=== PATIENT | male | born 1985 | race Caucasian/White ===

== ENCOUNTER 2018-05-08 13:20 | Observation (INO) | payer MEDICAID ==
--- NOTE | 2018-05-08 13:50 | EDPHY ---
HPI/HX/ROS/PE/MDM Narrative: CHIEF COMPLAINT: "Went to urgent care to get refill on blood pressure medication and they referred me here." HISTORY OF PRESENT ILLNESS: The patient is a 33 y/o male with a history of hypertension who arrives at the referral of urgent care for a refill of his blood pressure medications. He was prescribed lisinopril and hydrochlorothiazide in 2017, but has not been on them consistently. He was staying with his grandpa and checked his BP and found it high, so decided with his grandpa's encouragement to start taking his medications again and went to urgent care to get them filled. His last dose of lisinopril was 1 week ago. He didn't have specific complaints when he went to urgent care and says, "I've been going so long without the medication that I've adjusted to how I felt." He does currently complains of a headache across both temples and his forehead that radiates down the back of his neck into his shoulder. He the believes that some of the symptoms of his headache are related to tooth decay and have been present for a few days. He gets intermittent tingling in his fingertips and toes sometimes. He's also had some rhinorrhea and feels clammy, though it's not clear if this is acute. No known cardiac disease at a young age in primary family members. No fever, chills, chest pain, shortness of breath, palpitations, vomiting, diarrhea, urinary complaints, headache, lightheadedness, weakness. REVIEW OF SYSTEMS: Aside from elements discussed in the HPI, a comprehensive 10-point review of systems was reviewed and is negative. PAST MEDICAL HISTORY: Hypertension - lisinopril and hydrochlorothiazide; kidney stones FAMILY MEDICAL HISTORY: Mother age 60, had CAD, pulmonary disease, lung disease. Cause of not clear. SOCIAL HISTORY: Smoker, occasional marijuana, no other illicit drug use. Daily heavy alcohol use, last alcohol use last night, and says if he doesn't drink the next day "I feel like crap, but not DT shakes." No PCP. Lives in [place]. VITAL SIGNS: Reviewed by me. 197/130. GENERAL: Overweight individual, no respiratory distress, slightly diaphoretic on the face. No respiratory distress. Pleasant. HEENT: Atraumatic. Eyes: No icterus, no injection. Mouth: moist mucous membranes. No erythema or lesions. Very poor dentition, erythema around remaining tooth in upper right. Neck: supple with no adenopathy. No carotid bruit. LUNGS: Clear to auscultation bilaterally, no wheezes, rhonchi or rales. CARDIAC: Distant but regular rate and rhythm, no rubs, murmurs or gallops. ABDOMEN: Obese, soft, nontender, nondistended. BACK: No CVA tenderness. EXTREMITIES: No trauma. No edema. Range of motion is normal throughout. NEURO: Alert and oriented, grossly nonfocal. Not tremulous. SKIN: Warm and diaphoretic, no rash. PSYCHIATRIC: Normal mentation, no agitation. Portions of this note were transcribed by a medical assistant supervisor. I personally performed a history, physical exam, medical decision making, and confirmed accuracy of information the transcribed note. ED Course: This is a pleasant 33 y/o male with a history of inconsistently treated hypertension who presents requesting antihypertension medication refills, but also complaining of a headache, shoulder pain, and diaphoresis for a few days. He has an obese, benign abdomen and is quite diaphoretic. He has extremely poor dentition. He is not tachycardic but is hypertensive at 197/130. Plan for IV, labs, EKG, chest x-ray, head CT, angio head and neck CTs to assess for end- organ damage. 10mg PO lisinopril ordered. The 12 lead EKG was interpreted by myself. Sinus rhythm. See hard copy and/or "tracemaster" electronic copy for interpretation. POC troponin normal. Chest x-ray: negative. Head CT, head CTA, neck CTA: negative. Patient treated with lisinopril 10 mg. On re-examination, his diastolic blood pressure remains significantly elevated, greater than 120s. Spoke with hospitalist service. Dr. Magaña accepts admission. MDM: Differential diagnoses for the patient's symptom complex was considered including but not limited to hypertensive urgency, hypertensive emergency, endorgan damage from longstanding hypertension, pheochromocytoma, hypertensive encephalopathy. - Data Points Imaging Results: Imaging Impressions Chest X-Ray 05/08/18 13:52 Impression: 1. No active cardiopulmonary disease seen. 2. Mild anterior wedging mid to lower thoracic spine segments with associated degenerative disk disease and accentuation anterior kyphosis Head CT 05/08/18 13:53 Impression: No acute intracranial hemorrhage. Anahi Isaac was notified of these findings at 3:10 PM on 05/08/2018 Neck CTA 05/08/18 13:53 Impression: 1. There is no hemodynamically significant ICA stenosis. 2. Patent vertebral arteries. CT ANGIOGRAPHY OF THE BRAIN: The major vessels of the [place] are well visualized, and there is no aneurysm, vascular malformation, flow-limiting stenosis, or acute occlusion identified. The distal cervical, petrous, cavernous , and supraclinoid portions of the internal carotid arteries are patent. The central anterior and middle cerebral arteries are patent. With regards to the posterior circulation, the distal vertebral arteries are patent. The basilar artery, superior cerebellar arteries, and posterior communicating arteries are patent. Impression: 1. No evidence of occlusive thrombus, aneurysm, or dissection. Anahi Mcknightmonika was notified of these findings at 3:10 PM on 05/08/2018 Head CTA 05/08/18 14:30 Impression: 1. There is no hemodynamically significant ICA stenosis. 2. Patent vertebral arteries. CT ANGIOGRAPHY OF THE BRAIN: The major vessels of the [place] are well visualized, and there is no aneurysm, vascular malformation, flow-limiting stenosis, or acute occlusion identified. The distal cervical, petrous, cavernous , and supraclinoid portions of the internal carotid arteries are patent. The central anterior and middle cerebral arteries are patent. With regards to the posterior circulation, the distal vertebral arteries are patent. The basilar artery, superior cerebellar arteries, and posterior communicating arteries are patent. Impression: 1. No evidence of occlusive thrombus, aneurysm, or dissection. Anahi Gray was notified of these findings at 3:10 PM on 05/08/2018 Imaging: Discussed imaging studies w/ city controller Radiologist, I viewed and interpreted images myself Laboratory Results: Laboratory Results 05/08/18 13:43 05/08/18 13:43 05/08/18 05/08/18 05/08/18 13:49 13:43 13:43 WBC 12.22 10^3/uL H 10^3/uL (3.80-9.50) RBC 5.68 10^6/uL 10^6/uL (4.40-6.38) Hgb 19.2 g/dL H g/dL (13.7-17.5) Hct 54.5 % H % (40.0-51.0) MCV 96.0 fL fL (81.5-99.8) MCH 33.8 pg pg (27.9-34.1) MCHC 35.2 g/dL g/dL (32.4-36.7) RDW 15.2 % % (11.5-15.2) Plt Count 178 10^3/uL 10^3/uL (150-400) MPV 11.9 fL H fL (8.7-11.7) Neut % (Auto) 77.4 % H % (39.3-74.2) Lymph % (Auto) 12.9 % L % (15.0-45.0) [place] % (Auto) 8.5 % % (4.5-13.0) Eos % (Auto) 0.2 % L % (0.6-7.6) Baso % (Auto) 0.3 % % (0.3-1.7) Nucleat RBC Rel Count 0.0 % % (0.0-0.2) Absolute Neuts (auto) 9.44 10^3/uL H 10^3/uL (1.70-6.50) Absolute Lymphs (auto) 1.58 10^3/uL 10^3/uL (1.00-3.00) Absolute Monos (auto) 1.04 10^3/uL H 10^3/uL (0.30-0.80) Absolute Eos (auto) 0.03 10^3/uL 10^3/uL (0.03-0.40) Absolute Basos (auto) 0.04 10^3/uL 10^3/uL (0.02-0.10) Absolute Nucleated RBC 0.00 10^3/uL 10^3/uL (0-0.01) Immature Gran % 0.7 % % (0.0-1.1) Immature Gran # 0.09 10^3/uL 10^3/uL (0.00-0.10) Sodium 142 mEq/L mEq/L (135-145) Potassium 4.2 mEq/L mEq/L (3.5-5.2) Chloride 110 mEq/L mEq/L (97-110) Carbon Dioxide 21 mEq/l L mEq/l (22-31) Anion Gap 11 mEq/L mEq/L (6-14) BUN 14 mg/dL mg/dL (7-23) Creatinine 1.1 mg/dL mg/dL (0.7-1.3) Estimated GFR > 60 Glucose 100 mg/dL mg/dL (70-100) Calcium 9.9 mg/dL mg/dL (8.5-10.4) Total Bilirubin 0.7 mg/dL mg/dL (0.1-1.4) Conjugated Bilirubin 0.5 mg/dL mg/dL (0.0-0.5) Unconjugated Bilirubin 0.2 mg/dL mg/dL (0.0-1.1) AST 88 IU/L H IU/L (17-59) ALT 109 IU/L H IU/L (21-72) Alkaline Phosphatase 142 IU/L H IU/L (38-126) POC Troponin I 0.00 ng/mL ng/mL (0.00-0.08) Total Protein 8.1 g/dL g/dL (6.3-8.2) Albumin 4.9 g/dL g/dL (3.5-5.0) Lipase 145 IU/L IU/L (23-300) Ethyl Alcohol < 10 mg/dL mg/dL (0-10) Medications Given: Discontinued Medications Lisinopril (Zestril) 10 mg PO EDNOW ONE Stop: 05/08/18 14:40 Last Admin: 05/08/18 15:02 Dose: 10 mg Point of Care Test Results: Chemistry 05/08/18 13:49 POC Troponin I 0.00 ng/mL ng/mL (0.00-0.08) General Time Seen by Provider: 05/08/18 13:34 Initial Vital Signs: Initial Vital Signs Temperature (C) 36.9 C 05/08/18 13:25 Heart Rate 93 05/08/18 13:25 Respiratory Rate 16 05/08/18 13:25 Blood Pressure 189/134 H 05/08/18 13:25 O2 Sat (%) 95 05/08/18 13:25 O2 Delivery Mode Room Air Allergies/Adverse Reactions: No Known Allergies Allergy (Verified 05/08/18 17:04) Home Medications: Medication Instructions Recorded Hydrochlorothiazide [HCTZ (*)] 25 mg PO DAILY #30 tab 05/09/18 Lisinopril [Zestril 10 mg (*)] 10 mg PO DAILY #30 tab 05/09/18 Sertraline HCl [Zoloft 25mg (*)] 25 mg PO DAILY #30 tab 05/09/18 Departure - Departure Disposition: [facility] Inpatient Acute Clinical Impression: Hypertension Qualifiers: Hypertension type: unspecified Qualified Code(s): I10 - Essential (primary) hypertension Headache Qualifiers: Headache type: unspecified Headache chronicity pattern: acute headache Intractability: not intractable Qualified Code(s): R51 - Headache Condition: Fair Report Scribed for: Anahi Gray Report Scribed by: Leslie Schultz Date of Report: 05/08/18 Time of Report: 13:53
[2018-05-08 13:57] LABS: PLATELET COUNT 178 10^3/uL (150-400)
[2018-05-08] MEDS ORDERED: IOPAMIDOL (ISOVUE 370) 100 ML BTL IV ONE (14:34)
[2018-05-08] MEDS ORDERED: LISINOPRIL 20 MG TAB PO ONE (14:39)
[2018-05-08] MEDS ORDERED: NS 1,000 ML IV ONE (15:35)
[2018-05-08] MEDS ORDERED: HYDROCHLOROTHIAZIDE 25 MG TAB PO ONE (16:29)
[2018-05-08] MEDS ORDERED: ACETAMINOPHEN 325 MG TAB PO PRN (16:31)
[2018-05-08] MEDS ORDERED: IBUPROFEN 200 MG TAB PO PRN (16:31)
[2018-05-08] MEDS ORDERED: HYDROCODONE/APAP 5/325 TAB PO PRN (16:31)
[2018-05-08] MEDS ORDERED: ONDANSETRON DISINTEGRATING 4 MG TAB PO PRN (16:31)
[2018-05-08] MEDS ORDERED: ONDANSETRON 4 MG/2 ML VIAL IVP PRN (16:31)
[2018-05-08] MEDS ORDERED: HYDROCHLOROTHIAZIDE 25 MG TAB ONE (16:35)
[2018-05-08] MEDS ORDERED: hydrALAZINE 20 MG/ML VIAL IVP PRN (16:36)
[2018-05-08] MEDS ORDERED: ACETAMINOPHEN 500 MG TAB PO ONE (16:43)
--- NOTE | 2018-05-08 16:51 | PDGENHP ---
History and Physical - Chief Complaint headache - History of Present Illness 33yo M with history of hypertension, tobacco use, heavy etoh use presents from urgent care with a headache. Frontotemporal radiating down back of neck to shoulders. Started 3-4 days ago and getting worse. No associated vision changes , weakness, numbness. Was referred to this ED because of elevated blood pressure. In our ED, BP 189/134. He denies any chest pain, shortness of breath, palpitations, leg swelling. He has been out of his lisinopril for 1 week. He was previously on hctz but hasn't taken for about a year. He doesn't have a PCP. His headache is getting slightly better after getting lisinopril. It was felt that his BP was still too elevated to go home (SBP 170s) and is being admitted for further management. Case discussed with ED physician Anahi Gray. History Information - Allergies/Home Medication List Allergies/Adverse Reactions: No Known Allergies Allergy (Unverified 05/08/18 13:25) I have personally reviewed and updated: family history, medical history, social history, surgical history - Past Medical History Additional medical history: hypertension - Surgical History Additional surgical history: dental extraction - Family History Additional family history: mother - CAD in late 50s, htn - Social History Smoking Status: Light smoker (4-5 cigarettes/day) Alcohol Use: Other (drinkg 4-5 hard liquor drinks nightly) Drug Use: None Additional social history: Lives with grandparents. Unemployed Review of Systems Review of Systems: ROS: 10pt was reviewed & negative except for what was stated in HPI & below Physical Exam Physical Exam: Temp Pulse Resp BP Pulse Ox 36.9 C 94 18 175/113 H 96 05/08/18 13:25 05/08/18 15:04 05/08/18 15:04 05/08/18 15:04 05/08/18 15:04 Constitutional: no apparent distress, obese Ears, Nose, Mouth, Throat: moist mucous membranes, hearing normal, ears appear normal, no oral mucosal ulcers Cardiovascular: regular rate and rhythym, no murmur, rub, or gallop (distant heart sounds), No JVD, No edema Respiratory: no respiratory distress, no rales or rhonchi, clear to auscultation Gastrointestinal: normoactive bowel sounds, soft, non-tender abdomen, no palpable masses Genitourinary: no bladder fullness, no bladder tenderness Skin: warm, normal color, no rashes or abrasions, no fluctuance, no induration, No mottled Musculoskeletal: full muscle strength, no muscle tenderness, normal joint ROM, no joint effusions Neurologic: AAOx3 Psychiatric: interacting appropriately, not anxious, not encephalopathic, thought process linear Lab Data & Imaging Review 05/08/18 13:43 05/08/18 13:43 WBC 12.22 10^3/uL (3.80-9.50) H 05/08/18 13:43 RBC 5.68 10^6/uL (4.40-6.38) 05/08/18 13:43 Hgb 19.2 g/dL (13.7-17.5) H 05/08/18 13:43 Hct 54.5 % (40.0-51.0) H 05/08/18 13:43 MCV 96.0 fL (81.5-99.8) 05/08/18 13:43 MCH 33.8 pg (27.9-34.1) 05/08/18 13:43 MCHC 35.2 g/dL (32.4-36.7) 05/08/18 13:43 RDW 15.2 % (11.5-15.2) 05/08/18 13:43 Plt Count 178 10^3/uL (150-400) 05/08/18 13:43 MPV 11.9 fL (8.7-11.7) H 05/08/18 13:43 Neut % (Auto) 77.4 % (39.3-74.2) H 05/08/18 13:43 Lymph % (Auto) 12.9 % (15.0-45.0) L 05/08/18 13:43 [place] % (Auto) 8.5 % (4.5-13.0) 05/08/18 13:43 Eos % (Auto) 0.2 % (0.6-7.6) L 05/08/18 13:43 Baso % (Auto) 0.3 % (0.3-1.7) 05/08/18 13:43 Nucleat RBC Rel Count 0.0 % (0.0-0.2) 05/08/18 13:43 Absolute Neuts (auto) 9.44 10^3/uL (1.70-6.50) H 05/08/18 13:43 Absolute Lymphs (auto) 1.58 10^3/uL (1.00-3.00) 05/08/18 13:43 Absolute Monos (auto) 1.04 10^3/uL (0.30-0.80) H 05/08/18 13:43 Absolute Eos (auto) 0.03 10^3/uL (0.03-0.40) 05/08/18 13:43 Absolute Basos (auto) 0.04 10^3/uL (0.02-0.10) 05/08/18 13:43 Absolute Nucleated RBC 0.00 10^3/uL (0-0.01) 05/08/18 13:43 Immature Gran % 0.7 % (0.0-1.1) 05/08/18 13:43 Immature Gran # 0.09 10^3/uL (0.00-0.10) 05/08/18 13:43 Sodium 142 mEq/L (135-145) 05/08/18 13:43 Potassium 4.2 mEq/L (3.5-5.2) 05/08/18 13:43 Chloride 110 mEq/L (97-110) 05/08/18 13:43 Carbon Dioxide 21 mEq/l (22-31) L 05/08/18 13:43 Anion Gap 11 mEq/L (6-14) 05/08/18 13:43 BUN 14 mg/dL (7-23) 05/08/18 13:43 Creatinine 1.1 mg/dL (0.7-1.3) 05/08/18 13:43 Estimated GFR > 60 05/08/18 13:43 Glucose 100 mg/dL (70-100) 05/08/18 13:43 Calcium 9.9 mg/dL (8.5-10.4) 05/08/18 13:43 Total Bilirubin 0.7 mg/dL (0.1-1.4) 05/08/18 13:43 Conjugated Bilirubin 0.5 mg/dL (0.0-0.5) 05/08/18 13:43 Unconjugated Bilirubin 0.2 mg/dL (0.0-1.1) 05/08/18 13:43 AST 88 IU/L (17-59) H 05/08/18 13:43 ALT 109 IU/L (21-72) H 05/08/18 13:43 Alkaline Phosphatase 142 IU/L (38-126) H 05/08/18 13:43 POC Troponin I 0.00 ng/mL (0.00-0.08) 05/08/18 13:49 Total Protein 8.1 g/dL (6.3-8.2) 05/08/18 13:43 Albumin 4.9 g/dL (3.5-5.0) 05/08/18 13:43 Lipase 145 IU/L (23-300) 05/08/18 13:43 Ethyl Alcohol < 10 mg/dL (0-10) 05/08/18 13:43 Visualized and Interpreted Chest x-ray results: Yes Visualized and Interpreted imaging results: Yes Interpretation: CXR: clear lung aguilar, no effusion, normal heart size, right perihilar fullness (? pulmonary artery dilation) Visualized and Interpreted EKG results: Yes EKG additional interpertation: ECG: NSR, left axis deviation, borderline LVH ( by criteria for aVL), poor R wave progression, repol abnormalities in lateral leads, no acute ST-T segment changes Assessment & Plan Assessment: 33yo M with history of hypertension, tobacco use, heavy etoh use presents from urgent care with a headache and significantly elevated BP. Plan: 1. Severe hypertension: In setting of not taking anti-hypertensives and numerous risk factors - obesity with possible RONNY, etoh and tobacco use. - Restart prior home meds: lisinopril 10mg, hctz 25mg qd - Hydralazine PRN for SBP>180 - Discussed lifestyle modifications. Recommend outpatient sleep study. 2. Headache: Possibly related to above. Head imaging negative for vascular pathology/CVA. - Tylenol PRN 3. Polycythemia: Hct 54.5. Suspect r/t chronic hypoxia/smoking. - Recheck in AM. If still elevated, consider JAK2 testing 4. Abnormal LFTs: Etoh + fatty liver likely - Check hep B/C serologies and RUQ ultrasound 5. Etoh abuse: 4-5 drinks/night. No h/o withdrawal. - Strongly advised cessation 6. Tobacco use - Nicotine patch 7. Obesity VTE ppx: LMWH Code: full Diet: regular Dispo: Admit under observation
[2018-05-08] MEDS: NICOTINE 14 MG/24 HR PATCH TD SCH (17:30)
[2018-05-08] MEDS: LORazepam 0.5 MG TAB PO PRN (23:02)
[2018-05-09 06:06] LABS: PLATELET COUNT 149 10^3/uL (150-400)
[2018-05-09] MEDS ORDERED: ENOXAPARIN 40 MG/0.4 ML SYR SC SCH (09:00)
--- NOTE | 2018-05-09 10:56 | ASMTCMCOM ---
CM Note CM Note Notes: Pt has been admitted wt a headache x3-4 days and elevated BP. He has a hx of HTN, tobacco use and reported heavy etoh use. He is single and lives in [place]. Pt may benefit from resources for his etoh use. CM will follow for any d/c needs. D/C plan: anticipate d/c home independent with improvement of sx Date Signed: 05/09/2018 10:55 AM Electronically Signed By:LORETO Baker
[2018-05-09] MEDS: LORazepam 0.5 MG TAB PO PRN (12:14)
[2018-05-09] MEDS ORDERED: LISINOPRIL 10 MG TAB PO SCH (12:15)
[2018-05-09] MEDS ORDERED: HYDROCHLOROTHIAZIDE 25 MG TAB PO SCH (12:15)
[2018-05-09 14:31] VITALS: BP 155/96
--- NOTE | 2018-05-09 15:22 | GDS ---
[f rep st] DISCHARGE SUMMARY DISCHARGE DIAGNOSES: 1. Mild alcohol withdrawal. 2. Alcohol dependence. 3. Accelerated hypertension. 4. Hepatic steatosis. 5. Transaminitis. 6. Tobacco dependence. HISTORY OF PRESENT ILLNESS: A 33-year-old male with history of hypertension, tobacco abuse, heavy alcohol dependence. Presents from Urgent Care with a headache, frontotemporal, radiating down back of neck to shoulders. Started 3- 4 days ago and has progressively gotten worse. No vision changes, weakness, or numbness. He has been out of lisinopril for 1 week. Blood pressure initially was 189/ 134. He had previously been on hydrochlorothiazide, but has not taken it in a year. He does not have a PCP. He does have anxiety and depression worsened after his mother committed suicide. He began drinking heavily after that and he is trying to cut down. Denies suicidal or homicidal ideations. Was previously on Zoloft, which helped. HOSPITAL COURSE BY PROBLEM: 1. Accelerated hypertension: due to running out of meds. Blood pressure improved with lisinopril and restarting hydrochlorothiazide. . 2. Alcohol dependence and mild withdrawal: Counseled on cessation. Patient does not seem to want to quit at this time. Recommend that he see a therapist and stop drinking. 3. Anxiety: Exacerbated by the of his mother. No SI/HI.Previously did well on Zoloft. Will resume this. Needs to seek a therapist. 4. Transaminitis: LFTs up. Due to alcohol. Fatty hepatic steatosis on ultrasound. I counseled patient on progression to cirrhosis if continues drinking. 5. Tobacco dependence: Nicotine patch while here. DISPOSITION: Patient is stable for discharge home. NEW MEDICATIONS: Lisinopril 10 mg daily, hydrochlorothiazide 25 mg daily, Zoloft 25 mg daily. FOLLOWUP: 1. Establish care with a primary care physician. 2. Referral to a therapist. PHYSICAL EXAMINATION: VITAL SIGNS: Today, temperature 36.9, blood pressure now 155/76, heart rate is in the 80s, respirations 16, 95% on room air. GENERAL : Obese male, mildly anxious but no acute distress. HEENT: PERRLA. Moist mucous membranes. CV: Regular rate and rhythm. LUNGS: Clear. ABDOMEN: Obese, soft, nontender, nondistended. Positive bowel sounds. MUSCULOSKELETAL: 5/5 upper and lower extremity strength. NEURO: 2 through 12 intact. Mild hand tremor. PSYCH: Alert and oriented x3. TIME SPENT ON DISCHARGE: Greater than 30 minutes coordinating discharge plan and counseling patient on alcohol cessation and followup plan. /[id number]/MODL MTDD
[2018-05-09] MEDS: NICOTINE 14 MG/24 HR PATCH TD SCH (17:49)
--- NOTE | 2018-05-09 22:49 | CPEKG ---
Test Reason : OPEN Blood Pressure : / mmHG Vent. Rate : 093 BPM Atrial Rate : 093 BPM P-R Int : 133 ms QRS Dur : 088 ms QT Int : 379 ms P-R-T Axes : 070 -32 034 degrees QTc Int : 472 ms Sinus rhythm Left axis deviation Consider anterior infarct Confirmed by Anahi Gray ([id number]) on 05/09/2018 10:48:47 PM Referred By: Anahi Gray Confirmed By:Anahi Gray
[2018-05-11 02:53] LABS: HEPATITIS B CORE AB TOTAL NEGATIVE (NEGATIVE); HEPATITIS B SURFACE ANTIGEN NEGATIVE (NEGATIVE); HEPATITIS C ANTIBODY TOTAL NEGATIVE (NEGATIVE)
== END 2018-05-09 16:26 | disposition home or self-care (01) ==
LOC: F2W 17:00
PROVIDERS: ADMIT Internal Medicine; ATTEND Internal Medicine
DX: I10 Essential (primary) hypertension (principal); F10.230 Alcohol dependence with withdrawal, uncomplicated; F10.280 Alcohol dependence with alcohol-induced anxiety disorder; K76.0 Fatty (change of) liver, not elsewhere classified; F17.210 Nicotine dependence, cigarettes, uncomplicated; R74.0 Nonspecific elevation of levels of transaminase and lactic acid dehydrogenase [LDH]; E86.0 Dehydration; Y90.0 Blood alcohol level of less than 20 mg/100 ml; Z23 Encounter for immunization; Z81.8 Family history of other mental and behavioral disorders
CPT/HCPCS: 70450; 70496; 70498; 71046; 76705; 90471; 93005; 99285; G0378; 84484-ER; 86704-90; G0008; G0472; G0480; Q9967